=== PATIENT | female | born 1955 | race Caucasian/White ===

== ENCOUNTER 2020-07-04 09:14 | Inpatient (IN) ==
[2020-07-04 09:25] VITALS: BMI 43.9
[2020-07-04] MEDS ORDERED: DECADRON INJ IVP ONE (09:27)
[2020-07-04] MEDS ORDERED: PROVENTIL NEB TX 0.083% 2.5MG/ 3ML NEB ONE (09:27)
[2020-07-04] MEDS ORDERED: DECADRON INJ ONE (09:37)
--- NOTE | 2020-07-04 09:54 | DR.SOBA ---
HPI Time Seen Time Seen by Provider: 07/04/20 09:27 Primary Care Physician Primary Care Physician: Adolfo Fernandez Complaints Chief Complaint Doctors Comments: Pt with SOB, + for CAMARILLO no orthopnea no hemoptysis the CP is chronic after a neck surgery and is unchanged she is COVID 19+ and denies peripheral edema or hemoptysis Chief Complaint:: Patient came in for her 4th remedisivir infusion and stated complaints of shortness of breath, midsternal CP that radiates to her back, wheezing, cough, and MURPHY. Pt has home O2 that she wears PRN and her O2 sat on RA was 80%. Pt noted to have SOB, CAMARILLO, hypoxia, tachypnea, and hypotension upon arrival. Source History Provided: Patient Mode of Arrival Mode of Arrival: Ambulatory Timing Onset of Chief Complaint: 06/29/20 PMH PMH Past Medical History: Yes Past Medical History: Arthritis, COPD, Depression and Hyperthyroidism Past Surgical History: Yes Surgical History: Appendectomy and Ortho Surgery Past Surgical History Comment: Cataract surgery, Gastric bypass, Spine sx Family History History of Family Medical Conditions: Yes Family Medical History: Diabetes Mellitus, Cancer, Coronary Artery Disease and Heart Failure Social History Have you used tobacco products in the last 12 months: No Type of Tobacco Use: Cigarettes Does any household member use tobacco: Yes Alcohol Use: None Do you use any recreational Drugs:: No Lives With: Spouse Lives Where: Home Infectious screening In the last 2 months have you had wt loss of >10#?: NO Have you had fever, night sweats or hemotysis?: No Have you traveled outside the country in the last 6 months?: No Isolation: Droplet ROS Review of Systems Constitutional: Chills, Diaphoresis, Fever, Malaise, Weakness, Fatigue and Loss of Appetite Eyes: No Symptoms Reported ENTM: No Symptoms Reported Respiratoy: See HPI, Non-Productive Cough, Short of Breath and Wheezing; negative Orthopnea and Stridor Cardiovascular: See HPI Gastrointestinal/Abdominal: No Symptoms Reported Genitourinary: No Symptoms Reported Neurological: No Symptoms Reported Musculoskeletal: No Symptoms Reported Integumentary: No Symptoms Reported All Other Systems: Reviewed and Negative PE Vital Signs Vitals: Temperature 99.5 F Pulse Rate 62 Respiratory Rate 20 Blood Pressure [Right Arm] 92/52 Blood Pressure [Left Arm] 80/45 Blood Pressure 98/51 O2 Sat by Pulse Oximetry 96 General Limitations: No Limitations Head Head Exam: Normal Inspection, Atraumatic and Normocephalic Eyes Eye exam: Normal Appearance, PERRL and EOMI; negative Scleral Icterus and Conjunctival Injection ENT ENT Exam: Normal Exam, Normal Oropharynx, Normal External Ear Exam and Mucous Membranes Moist Neck Neck Exam: Normal Inspection, Full ROM and Trachea Midline Chest Chest Inspection: Normal Inspection and Symmetric Chest Wall Rise; negative Tenderness Respiratory Respiratory Exam: negative Normal Lung Sounds Bilat, Accessory Muscle Use and Chest Wall Tenderness Respiratory Exam: Bilateral: Wheezing and Bilateral: Rhonchi Cardiovascular Cardiovascular Exam: Regular Rate, Normal Rhythm and Normal Heart Sounds Abdominal Exam Abdominal Exam: Normal Inspection, Normal Bowel Sounds and Soft Extremities Extremities Exam: Normal Inspection and Full ROM; negative Tenderness and Edema Back Back Exam: Normal Inspection and Full ROM; negative Tenderness Neurologic Neurological Exam: Alert, Oriented X3 and Normal Gait Psychiatric Psychiatric Exam: Normal Affect and Normal Mood Skin Skin Exam: Warm, Dry and Intact COURSE Treatment Treatment: discussed with Dr Jaquez [id number] he accepted patient ROR Labs Reviewed Laboratory Results Reviewed?: Yes Result Diagrams: 07/04/20 09:35 07/04/20 09:35 Laboratory: WBC 11.3 X10^3/uL (3.6-10.0) H 07/04/20 09:35 RBC 4.08 X10^6/uL (3.5-5.4) 07/04/20 09:35 Hgb 11.8 g/dL (12.0-16.0) L 07/04/20 09:35 Hct 35.8 % (36.0-47.0) L 07/04/20 09:35 MCV 87.6 fL (80.0-100.0) 07/04/20 09:35 MCH 29.0 pg (27.0-34.0) 07/04/20 09:35 MCHC 33.1 g/dL (33.0-35.0) 07/04/20 09:35 RDW 13.9 % (11.6-16.5) 07/04/20 09:35 Plt Count 188 X10^3/uL (150.0-450.0) 07/04/20 09:35 MPV 8.7 fL (7.4-11.0) 07/04/20 09:35 Neut % (Auto) 88.8 % (42.0-75.0) H 07/04/20 09:35 Lymph % (Auto) 7.3 % (21.0-51.0) L 07/04/20 09:35 [place] % (Auto) 3.8 % (0.0-13.0) 07/04/20 09:35 Eos % (Auto) 0.0 % (0.9-2.9) L 07/04/20 09:35 Baso % (Auto) 0.1 % (0.2-1.0) L 07/04/20 09:35 Neut # (Auto) 10.0 x10^3/uL (2.2-4.8) H 07/04/20 09:35 Lymph # (Auto) 0.8 X10^3/uL (1.3-2.9) L 07/04/20 09:35 [place] # (Auto) 0.4 x10^3/uL (0.3-0.8) 07/04/20 09:35 Eos # (Auto) 0.0 x10^3/uL (0.0-0.2) 07/04/20 09:35 Baso # (Auto) 0.0 X10^3/uL (0.0-0.1) 07/04/20 09:35 Absolute Nucleated RBC 0.1 /100WBC 07/04/20 09:35 PT 14.3 SECONDS (11.8-14.3) 07/04/20 09:35 INR Target Range - 07/04/20 09:35 INR 1.14 (0.8-1.3) 07/04/20 09:35 APTT 42.0 SECONDS (22.9-36.5) H 07/04/20 09:35 PTT Comment - 07/04/20 09:35 D-Dimer 0.13 ug/ml (0.0-0.57) 07/04/20 09:35 Sample Site Lra 07/04/20 11:00 ABG pH 7.490 (7.35-7.45) H 07/04/20 11:00 ABG pCO2 36.0 mmHg (35.0-45.0) 07/04/20 11:00 ABG pO2 144.0 mmHg (80.0-100.0) H 07/04/20 11:00 ABG HCO3 27.4 mmol/L (22-26) H 07/04/20 11:00 ABG O2 Saturation 99.0 % (90-100) 07/04/20 11:00 ABG Base Excess 4.0 mmol/L (-2.0-2.0) H 07/04/20 11:00 Noe Test Pos 07/04/20 11:00 A-a Gradient 11.0 mmHg 07/04/20 11:00 FiO2 28.0 07/04/20 11:00 Blood Gas Comments Pt june well mt 07/04/20 11:00 Sodium 142 mmol/L (136-145) 07/04/20 09:35 Corrected Sodium TNP 07/04/20 09:35 Potassium 4.3 mmol/L (3.5-5.1) 07/04/20 09:35 Chloride 105 mmol/L (98-107) 07/04/20 09:35 Carbon Dioxide 27.3 mmol/L (21-32) 07/04/20 09:35 BUN 45 mg/dL (7-18) H 07/04/20 09:35 Creatinine 0.99 mg/dL (0.55-1.02) 07/04/20 09:35 Est GFR (MDRD) Af Amer > 60 (>60) 07/04/20 09:35 Est GFR (MDRD) Non-Af 60 (>60) 07/04/20 09:35 Glucose 79 mg/dL (65-99) 07/04/20 09:35 Calcium 8.9 mg/dL (8.5-10.1) 07/04/20 09:35 Corrected Calcium 9.7 mg/dL (8.5-10.1) 07/04/20 09:35 Magnesium 1.5 mg/dL (1.7-2.9) L 07/04/20 09:35 Total Bilirubin 0.30 mg/dL (0.2-1.0) 07/04/20 09:35 AST 40 Units/L (15-37) H 07/04/20 09:35 ALT 31 Units/L (12-78) 07/04/20 09:35 Alkaline Phosphatase 88 Units/L (46-116) 07/04/20 09:35 Creatine Kinase 259 Units/L (26-192) H 07/04/20 09:35 CK-MB (CK-2) 4.9 ng/mL (0-4.0) H* 07/04/20 09:35 CK/CKMB % Calc 1.9 % (<4) 07/04/20 09:35 Troponin I < 0.02 ng/mL (0-1.5) 07/04/20 09:35 B-Natriuretic Peptide 41.0 pg/mL (0-79) 07/04/20 09:35 Total Protein 6.5 g/dL (6.4-8.2) 07/04/20 09:35 Albumin 3.0 g/dL (3.4-5.0) L 07/04/20 09:35 Globulin 3.5 g/dL (2.5-4.5) 07/04/20 09:35 Albumin/Globulin Ratio 0.9 Ratio (1.1-2.1) L 07/04/20 09:35 XRAY XRAY Interpreted by: Radiologist X-ray Results: read indpendently by me new pneumonias EKG Rate: 64 [place]: Normal Rhythm: NSR Block: None Hypertrophy: LVH ST: Normal Opioid Opioid Risk Tool Age (Rupert box if 16-45): No History of Preadolescent Sexual Abuse: No Total: 0 Total Score Risk Category: Low Risk Copyright: Nasir BOWDEN predicting aberrant behaviors Diagnosis Discharge Problem: COVID-19, Hypoxia Pneumonia Qualifiers: Pneumonia type: due to unspecified organism
[2020-07-04 09:59] LABS: BASOPHILS % (AUTO) 0.1 % (0.2-1.0); HEMATOCRIT 35.8 % (36.0-47.0); HEMOGLOBIN 11.8 g/dL (12.0-16.0); LYMPHOCYTES # (AUTO) 0.8 X10^3/uL (1.3-2.9); LYMPHOCYTES % (AUTO) 7.3 % (21.0-51.0); MEAN CORPUSCULAR HGB CONC 33.1 g/dL (33.0-35.0); MEAN CORPUSCULAR VOLUME 87.6 fL (80.0-100.0); MEAN PLATELET VOLUME 8.7 fL (7.4-11.0); MONOCYTES # (AUTO) 0.4 x10^3/uL (0.3-0.8); MONOCYTES % (AUTO) 3.8 % (0.0-13.0); NEUTROPHILS % (AUTO) 88.8 % (42.0-75.0); PLATELET COUNT 188 X10^3/uL (150.0-450.0); RED BLOOD COUNT 4.08 X10^6/uL (3.5-5.4); RED CELL DISTRIBUTION WIDTH 13.9 % (11.6-16.5); WHITE BLOOD COUNT 11.3 X10^3/uL (3.6-10.0)
--- NOTE | 2020-07-04 10:07 | RAD ---
HISTORYSOBSTUDYCHEST, 1 [id number]/2021FINDINGSTrachea is midline. There is mild cardiomegaly. There is new round patchy alveolar and ground-glass radiopacities involving the right upper lobe and bilateral lower lobes, suspicious for viral pneumonia. No effusion or pneumothoraxIMPRESSIONNew patchy ground-glass and alveolar radiopacities as described above.Electronically signed by: Hiral Montgomery (Jul 04, 2020 10:05:55)
[2020-07-04] MEDS ORDERED: PROVENTIL NEB TX 0.083% 2.5MG/ 3ML ONE (10:09)
[2020-07-04] MEDS ORDERED: ZITHROMAX INJ 500 MG VIAL 500 MG in NS 250 ML IV 250 ML IV SCH (10:19)
[2020-07-04 10:25] LABS: BLOOD UREA NITROGEN 45 mg/dL (7-18); CALCIUM 8.9 mg/dL (8.5-10.1); CARBON DIOXIDE 27.3 mmol/L (21-32); CHLORIDE 105 mmol/L (98-107); CREATININE 0.99 mg/dL (0.55-1.02); SODIUM 142 mmol/L (136-145); TROPONIN I < 0.02 ng/mL (0-1.5); eGFR NON BLACK RACES 60 (>60)
[2020-07-04 10:44] LABS: ALANINE AMINOTRANSFERASE 31 Units/L (12-78); ALKALINE PHOSPHATASE 88 Units/L (46-116); ASPARTATE AMINO TRANSFERASE 40 Units/L (15-37); CKMB % 1.9 % (<4); COR CA(FOR HYPOALB) 9.7 mg/dL (8.5-10.1); CREATINE KINASE 259 Units/L (26-192); MAGNESIUM 1.5 mg/dL (1.7-2.9); TOTAL PROTEIN 6.5 g/dL (6.4-8.2)
[2020-07-04 10:45] LABS: CREATINE KINASE MB 4.9 ng/mL (0-4.0)
[2020-07-04] MEDS ORDERED: NS 1000 ML 1,000 ML IV SCH (11:00)
[2020-07-04] MEDS ORDERED: NS 1000 ML 1,000 ML ONE (11:01)
[2020-07-04 11:07] LABS: ABG HCO3 27.4 mmol/L (22-26)
[2020-07-04 11:09] LABS: ABG ALLEN TEST POS
[2020-07-04] MEDS ORDERED: NORCO 10/325 TAB PO PRN (13:11)
[2020-07-04] MEDS ORDERED: PHARMACY CONSULT - IVERMECTIN XX SCH (13:11)
[2020-07-04] MEDS ORDERED: LIPITOR TAB 80 MG ONE (13:27)
[2020-07-04] MEDS ORDERED: TESSALON PERLES PO ONE (13:27)
[2020-07-04] MEDS ORDERED: DECADRON TAB ONE (13:27)
[2020-07-04] MEDS ORDERED: VIBRAMYCIN PO ONE (13:27)
[2020-07-04] MEDS ORDERED: PROTONIX TAB 40 MG PO ONE (13:27)
[2020-07-04] MEDS ORDERED: LOVENOX INJ 30 MG SYR SC ONE (13:28)
[2020-07-04] MEDS ORDERED: PEPCID TAB 40 MG ONE (13:28)
[2020-07-04] MEDS ORDERED: VITAMIN D3 125 mcg (5,000 UNITS) ONE (13:28)
[2020-07-04] MEDS ORDERED: TRICOR TAB 160 MG ONE (13:28)
[2020-07-04] MEDS: TESSALON PERLES PO SCH ×2 (13:30→21:40)
[2020-07-04] MEDS: LOVENOX INJ 30 MG SYR SC SCH ×2 (13:31→22:34)
[2020-07-04] MEDS: PEPCID TAB 40 MG PO SCH ×2 (13:33→21:44)
[2020-07-04] MEDS: DECADRON TAB PO SCH (13:34)
[2020-07-04] MEDS: VIBRAMYCIN PO SCH ×2 (13:34→21:54)
[2020-07-04] MEDS: TRICOR TAB 160 MG PO SCH (13:35)
[2020-07-04] MEDS: LIPITOR TAB 80 MG PO SCH (13:35)
[2020-07-04] MEDS: PROTONIX TAB 40 MG PO SCH (13:35)
[2020-07-04] MEDS: VITAMIN D (1.25MG) PO SCH (13:36)
[2020-07-04] MEDS: VITAMIN D3 125 mcg (5,000 UNITS) PO SCH (13:36)
[2020-07-04] MEDS: VITAMIN A PO SCH (13:37)
[2020-07-04] MEDS ORDERED: THIAMINE HCL INJ ONE (13:40)
[2020-07-04] MEDS: THIAMINE HCL INJ IVP SCH ×2 (13:41→21:46)
[2020-07-04] MEDS ORDERED: IVERMECTIN PO SCH (14:00)
[2020-07-04] MEDS ORDERED: IVERMECTIN ONE (14:11)
[2020-07-04] MEDS: IVERMECTIN PO SCH ×2 (14:11→14:26)
[2020-07-04] MEDS: MUCINEX EXPECTORANT PO SCH (14:25)
[2020-07-04] MEDS: REGLAN TAB 10 MG PO SCH ×3 (14:25→21:44)
[2020-07-04] MEDS: NS 1000 ML 1,000 ML IV SCH (14:51)
[2020-07-04] MEDS ORDERED: NS 50 ML IV 50 ML IV ONE (15:01)
[2020-07-04] MEDS: ASCORBIC ACID INJ MULTI-DOSE VIAL 1,500 MG in NS 100 ML IV 100 ML IV SCH ×2 (15:16→21:41)
[2020-07-04] MEDS ORDERED: NORCO 10/325 TAB ONE (16:21)
[2020-07-04] MEDS: DUONEB 0.5 MG/3 MG (3 mL) NEB SCH ×2 (16:30→20:15)
[2020-07-04] MEDS: PULMICORT NEB TX 0.5 MG NEB SCH (20:15)
[2020-07-04] MEDS: BROVANA IN SCH (20:15)
[2020-07-04] MEDS ORDERED: PATIENT'S HOME MEDICATION (Budesonide-Formoterol 160 MCG/4.5 MCG HFA aerosol inhaler) INH SCH (21:00)
[2020-07-04] MEDS ORDERED: PATIENT'S HOME MEDICATION (Ranitidine Hcl 150 MG tablet) PO SCH (21:00)
[2020-07-04] MEDS ORDERED: MAGNESIUM SULFATE 1 GRAM/100 mL PREMIX 1 GM/100 ML BAG IV PRN (21:06)
[2020-07-04] MEDS ORDERED: POTASSIUM CHL 60 MEQ/NS 0.45% 500 ML IV PRN (21:06)
[2020-07-04] MEDS ORDERED: K-RIDER 10 MEQ/NS 100 ML 10 MEQ/100 ML BAG IV PRN (21:06)
[2020-07-04] MEDS ORDERED: MICRO K EXTEN CAP 10 MEQ PO PRN (21:06)
[2020-07-04] MEDS ORDERED: KLOR-CON PO PRN (21:06)
[2020-07-04] MEDS ORDERED: K-DUR TAB 20 MEQ PO PRN (21:06)
[2020-07-04] MEDS ORDERED: POTASSIUM CHL 40 MEQ/NS 0.45% 500 ML IV PRN (21:06)
[2020-07-04] MEDS ORDERED: POTASSIUM CHLORIDE LIQ 20 MEQ UDC PO PRN (21:06)
[2020-07-04] MEDS: LYRICA CAP 50 mg PO SCH (21:40)
[2020-07-04] MEDS: EFFEXOR TAB 75 MG (BID DOSING) PO SCH (21:41)
[2020-07-04] MEDS: MELATONIN PO SCH (21:43)
[2020-07-04] MEDS: REMDESIVIR 100 MG in NS 250 ML IV 250 ML IV SCH (21:45)
[2020-07-04] MEDS: ZINC SULFATE PO SCH (21:47)
[2020-07-05] MEDS: ASCORBIC ACID INJ MULTI-DOSE VIAL 1,500 MG in NS 100 ML IV 100 ML IV SCH ×4 (02:53→20:12)
[2020-07-05] MEDS: TESSALON PERLES PO SCH ×3 (05:40→23:25)
[2020-07-05] MEDS: REGLAN TAB 10 MG PO SCH ×4 (05:41→20:16)
[2020-07-05 05:59] LABS: ABG BASE EXCESS 5.3 mmol/L (-2.0-2.0)
[2020-07-05 06:01] LABS: ABG ALLEN TEST POS; ABG HCO3 30.5 mmol/L (22-26)
--- NOTE | 2020-07-05 06:13 | RAD ---
HISTORYShortness of breathSTUDYChest AP [id number] June 2020FINDINGSThe heart is within normal limits in size. The becca are normal. The lungs are hypoinflated. Previously noted bilateral infiltrates have improved bilaterally with some residual interstitial infiltrates remaining. No pleural effusions are identified. Bony thorax is unremarkable.IMPRESSIONImproving bilateral infiltratesElectronically signed by: NOAH DAVIS (Jul 05, 2020 06:12:19)
[2020-07-05 06:46] LABS: BASOPHILS % (AUTO) 0.1 % (0.2-1.0); HEMATOCRIT 28.7 % (36.0-47.0); HEMOGLOBIN 9.5 g/dL (12.0-16.0); LYMPHOCYTES # (AUTO) 0.5 X10^3/uL (1.3-2.9); LYMPHOCYTES % (AUTO) 7.1 % (21.0-51.0); MEAN CORPUSCULAR HEMOGLOBIN 28.8 pg (27.0-34.0); MEAN CORPUSCULAR HGB CONC 32.9 g/dL (33.0-35.0); MEAN CORPUSCULAR VOLUME 87.5 fL (80.0-100.0); MEAN PLATELET VOLUME 9.1 fL (7.4-11.0); MONOCYTES # (AUTO) 0.3 x10^3/uL (0.3-0.8); MONOCYTES % (AUTO) 4.1 % (0.0-13.0); NEUTROPHILS # (AUTO) 6.7 x10^3/uL (2.2-4.8); NEUTROPHILS % (AUTO) 88.7 % (42.0-75.0); PLATELET COUNT 180 X10^3/uL (150.0-450.0); RED BLOOD COUNT 3.29 X10^6/uL (3.5-5.4); RED CELL DISTRIBUTION WIDTH 13.9 % (11.6-16.5); WHITE BLOOD COUNT 7.5 X10^3/uL (3.6-10.0)
[2020-07-05 06:52] LABS: ALANINE AMINOTRANSFERASE 22 Units/L (12-78); ALBUMIN 2.7 g/dL (3.4-5.0); ALKALINE PHOSPHATASE 74 Units/L (46-116); ASPARTATE AMINO TRANSFERASE 27 Units/L (15-37); BLOOD UREA NITROGEN 43 mg/dL (7-18); CALCIUM 8.8 mg/dL (8.5-10.1); CHLORIDE 109 mmol/L (98-107); COR CA(FOR HYPOALB) 9.8 mg/dL (8.5-10.1); COR NA(FOR HYPERGLY) 145 mmol/L (136-145); CREATININE 0.75 mg/dL (0.55-1.02); MAGNESIUM 2.1 mg/dL (1.7-2.9); SODIUM 145 mmol/L (136-145); TOTAL PROTEIN 5.9 g/dL (6.4-8.2); eGFR NON BLACK RACES > 60 (>60)
[2020-07-05] MEDS ORDERED: NS 100 ML IV 100 ML IV ONE (08:34)
--- NOTE | 2020-07-05 08:43 | DR.H&P ---
H&P - History & Physical for Day of: H&P Date: 07/04/20 - Chief Complaint Chief Complaint: COUGH, SOB, FEVER, WHEEZING, HYPOTENSION, CHEST PAIN, COVID POSITIVE - History of Present Illness History of Present Illness: IS A 64 YEAR OLD PATIENT OF OURS. SHE PRESENTED TO THE ER WITH COMPLAINTS OF INCREASED SHORTNESS OF BREATH. SHE REPORTS THAT SHORTNESS OF BREATH IS WORSE UPON EXERTION. SHE DENIES HEMOPTYSIS OR EDEMA. SHE IS POSITIVE FOR COVID-19. PRIOR TO ARRIVAL AT ER, PATIENT WAS AT THE HOSPTIAL RECEIVING HER FOURTH REMDESIVIR INFUSION. WHILE RECEIVING INFUSION, PATIENT BEGAN TO COMPLAIN OF MIDSTERNAL CHEST PAIN WITH RADIATION TO THE BACK, WHEEZING, INCREASED COUGH, AND HEADACHE. SHE HAS HOME OXYGEN THAT SHE WEARS NEEDED. SHE WAS NOT WEARING IT WHILE RECEIVING INFUSION. HE OXYGEN SATURATIONS WERE NOTED TO BE 80% ON ROOM AIR. EXAMINATION ALSO REVEALED WHEEZING, TACHYPNEA, AND HYPOTENSION. CHEST PAIN IS DESCRIBED SHARP AND WAS RATED 5/10. HER PMH INCLUDES ARTHRITIS, COPD, DEPRESSION, AND HYPERTHYROIDISM. ON ARRIVAL TO THE ER, VITALS WERE 99.5-68-21-80%RA-89/47. LABS WERE OBTAINED. ABNORMAL LAB VALUES INCLUDE THE FOLLOWING: WBC 11.3, HGB 11.8, HCT 35.8, BUN 45, MAGNESIUM 1.5, FERRITIN 855, AST 40, CREATINE KINASE 253, CK-MB 4.9, ALBUMIN 3.0. AN ABG WAS OBTAINED AND REVEALED: PH 7.490, PC02 36, P02 144, HC03 27.4, 02 SAT 99, BASE EXCESS 4.0, A-A GRADIENT 11, FI02 28. BLOOD CULTURES WERE SET UP. A CHEST XRAY W OBTAINED AND REVEALED: Trachea is midline. There is mild cardiomegaly. There is new round patchy alveolar and ground-glass radiopacities involving the right upper lobe and bilateral lower lobes, suspicious for viral pneumonia. No effusion or pneumothorax. AN EKG WAS OBTAINED AND REVEALED: SINUS RHYTHM WITH HR 64. IN THE ER, HE WAS GIVEN DECADRON 8MG IV X 1, PROVENTIL NEB X 1, AND NORCO 10/325MG PO X 1 DOSE. SHE DENIED IMPROVEMENT IN SYMPTOMS. SHE WAS ADMITTED TO THE HOSPITAL FOR FURTHER EVALUATION AND TREATMENT OF PNEUMONIA DUE TO COVID-19 AND HYPOXIA. SHE WAS STARTED ON NS AT [facility], REMDESIVIR 100MG IV DAILY, ASCORBIC ACID 1500MG IV Q6H, ATORVASTATIN 80MG PO DAILY, TESSALON PERLES 200MG PO TID, BROVANA NEBS BID, ALBUTEROL NEBS Q6H, PULMICORT NEBS BID, LOVENOX 30MG SC BID, LEVAQUIN 500MG IV DAILY, FORTAZ 1G IV Q8H, TRICOR 160MG PO DAILY, MUCINEX 600MG PO Q12H, NORCO 10/325MG PO Q4H PRN, IVERMECTIN 24MG PO Q72 HR, SYNTHROID 150MG PO DAILY, MELATONIN 10MG PO HS, REGLAN 10MG PO ACHS, SINGULAIR 10MG PO DAILY, PROTONIX 40MG PO DAILY, LYRICA 50MG PO BID, THIAMINE 200MG IV BID, EFFEXOR 150MG PO DAILY AND EFFEXOR 75MG PO HS, ZINC 220MG PO BID, AND THE POTASSIUM AND MAGNESIUM PROTOCOLS. WE WILL OBTAIN AN ECHOCARDIOGRAM AND A CHEST CTA. OTHERWISE, WE PLAN TO FOLLOW UP WITH AM LABS AND CONTINUE TO MONITOR. TIME SPENT ON CLINICAL ASSESSMENT REVIEWING LABS AND IMAGING, DECISION MAKING, AND DOCUMENTATION GREATER THAN 75 MINUTES. - Past Medical History Past Medical History: Depression, Hyperthyroidism, COPD, Arthritis Additional Medical History: Bronchtis, Hiatal hernia, constipation, Fibromyalgia, Back Pain, Degenerative Disc Disease - Past Surgical History Surgical History: Appendectomy, Ortho Surgery Additional Surgical History: gastric bypass, back surgery - Family History Family Medical History: Diabetes Mellitus, Cancer, Coronary Artery Disease, Heart Failure - Social History Does patient currently use any type of tobacco product: No Have you used tobacco products in the last 12 months: No Type of Tobacco Use: None Does any household member use tobacco: No Alcohol Use: None Drug Use: None - Medications Home Medications: tetanus immune globulin Allergy (Verified 07/01/20 14:34) CONTINUE taking the following medications biotin 1,000 mcg PO DAILY 07/04/20 [History] cyanocobalamin (vitamin B-12) 100 mcg IM WEEKLY 07/04/20 [History] docusate sodium [Colace] 100 mg PO BID 07/04/20 [History] famotidine 20 mg PO BID 07/04/20 [History] ferrous sulfate 65 mg PO DAILY 07/04/20 [History] [id number] [Trelegy Ellipta] 1 inh INHALATION DAILY 07/04/20 [History] loratadine 10 mg PO HS 07/04/20 [History] meloxicam 15 mg PO DAILY 07/04/20 [History] - Review of Systems Constitutional: Fever, Weakness Eyes: No Symptoms Reported ENT: No Symptoms Reported Respiratory: Cough, Shortness of Breath, SOB with Excertion, Wheezing Cardiovascular: No Symptoms Reported Gastrointestinal: No Symptoms Reported Genitourinary: No Symptoms Reported Musculoskeletal: No Symptoms Reported Skin: No Symptoms Reported Neurological: Weakness - Physical Exam Vital Signs: Temperature 97.9 F Pulse Rate [Right Brachial] 54 Pulse Rate 65 Respiratory Rate 20 Blood Pressure [Right Arm] 118/57 Blood Pressure [Left Arm] 80/45 Blood Pressure 101/50 O2 Sat by Pulse Oximetry 93 Oriented: Normal Eyes: Normal Ear: Normal Nose: Normal Throat: Normal Respiratory: Wheezes Throughout Cardiovascular: Normal : Normal Auscultation: Bowel Sounds: Normal Palpation: Normal Tenderness: Normal Skin: Normal Musculoskeletal: Normal Psychiatric: Normal Mood Description: Calm Affect: Normal Speech Pattern: Clear - Assessment/Plan (1) Pneumonia due to COVID-19 virus Status: Acute Plan: ADMIT, IV FLUIDS, LEVAQUIN IV, FORTAZ IV, REMDESIVIR IV, NEB TX, RESUME HOME MEDS, OBTAIN ECHO AND CHEST CTA (2) Hypoxia Status: Acute (3) COPD (chronic obstructive pulmonary disease) Qualifiers: COPD type: unspecified COPD Qualified Code(s): J44.9 - Chronic obstructive pulmonary disease, unspecified Status: Chronic (4) Hypothyroidism Qualifiers: Hypothyroidism type: acquired Qualified Code(s): E03.9 - Hypothyroidism, unspecified Status: Chronic - Review H&P Reviewed: Yes Patient was examined?: Yes - Allergies Allergies/Adverse Reactions: Allergies Allergy/AdvReac Type Severity Reaction Status Date / Time tetanus immune globulin Allergy Verified 07/01/20 14:34
[2020-07-05] MEDS: DECADRON TAB PO SCH (08:48)
[2020-07-05] MEDS: EFFEXOR TAB 75 MG (BID DOSING) PO SCH ×2 (08:50→20:13)
[2020-07-05] MEDS: ZINC SULFATE PO SCH ×2 (08:51→20:15)
[2020-07-05] MEDS: LOVENOX INJ 30 MG SYR SC SCH ×2 (08:52→21:23)
[2020-07-05] MEDS: PEPCID TAB 40 MG PO SCH ×2 (08:54→20:17)
[2020-07-05] MEDS: VITAMIN D (1.25MG) PO SCH (08:54)
[2020-07-05] MEDS: TRICOR TAB 160 MG PO SCH (08:54)
[2020-07-05] MEDS: SYNTHROID 150 mcg TAB PO SCH (08:55)
[2020-07-05] MEDS: PROTONIX TAB 40 MG PO SCH (08:55)
[2020-07-05] MEDS: SINGULAIR TAB 10 MG PO SCH (08:55)
[2020-07-05] MEDS: THIAMINE HCL INJ IVP SCH ×2 (08:56→20:16)
[2020-07-05] MEDS: LIPITOR TAB 80 MG PO SCH (08:56)
[2020-07-05] MEDS: VIBRAMYCIN PO SCH (08:56)
[2020-07-05] MEDS: LYRICA CAP 50 mg PO SCH ×2 (08:56→20:14)
[2020-07-05] MEDS: VITAMIN A PO SCH (08:58)
[2020-07-05] MEDS ORDERED: ZOFRAN INJ 4 MG VIAL IVP PRN (09:03)
[2020-07-05] MEDS: NS 1000 ML 1,000 ML IV SCH (09:12)
[2020-07-05] MEDS: MUCINEX EXPECTORANT PO SCH ×2 (09:12→14:55)
[2020-07-05] MEDS: PULMICORT NEB TX 0.5 MG NEB SCH ×2 (09:18→21:10)
[2020-07-05] MEDS: BROVANA IN SCH ×2 (09:25→21:05)
--- NOTE | 2020-07-05 10:51 | CT ---
HISTORYSOB / COVID hypertension. Asthma. COPD.STUDYCTA CHESTCOMPARISONChest radiograph 07/05/2020TECHNIQUEMultiple CT axial images of the chest were obtained with IV contrast. Coronal and sagittal images were reconstructed. 3D reconstructions using axial MIPS imaging was performed and reviewed. Dose reduction techniques included Automated Exposure Control (AEC) and adjustment of mA and kV.Stenoses are measured using NASCET criteria.FINDINGSPulmonary arteries are identified to subsegmental branches. No pulmonary emboli.Cardiomegaly is present. Atherosclerotic calcifications are present in the coronary arteries. The pulmonary artery and aorta have a normal caliber. No mediastinal mass or significant lymphadenopathy.No thyroid abnormality.No axillary mass or significant axillary lymphadenopathy is identified.Limited views of the upper abdomen show no significant abnormality. Surgical clips are present at the esophagogastric junction.Patchy bilateral focal areas of ground-glass opacity are compatible with bronchopneumonia. The appearance is typical for COVID-19. No pleural effusion or pneumothorax.Fixation hardware is present in the lower thoracic spine. Compression fracture is present in the lower thoracic spine, probably old.IMPRESSION1. No pulmonary emboli2. Bronchopneumonia typical for COVID-193. Cardiomegaly with CADElectronically signed by: Mick Fernandez (Jul 05, 2020 10:49:21)
[2020-07-05] MEDS: LEVAQUIN PREMIX IV 500 MG 500 MG/100 ML BAG IV SCH (11:14)
[2020-07-05] MEDS: FORTAZ or TAZICEF VIAL INJ 1 G in NS 100 ML IV + SPIKE MINIBAG* 100 ML IV SCH ×3 (11:14→23:24)
[2020-07-05] MEDS: SOLU-Medrol 125 MG VIAL IVP SCH ×3 (11:15→21:25)
[2020-07-05] MEDS: ACCUNEB 1.25 MG NEBULE NEB SCH ×3 (11:39→17:07)
[2020-07-05] MEDS: NORCO 10/325 TAB PO PRN (18:36)
[2020-07-05] MEDS: REMDESIVIR 100 MG in NS 250 ML IV 250 ML IV SCH (20:11)
[2020-07-05] MEDS: MELATONIN PO SCH (20:17)
[2020-07-05] MEDS: DUONEB 0.5 MG/3 MG (3 mL) NEB SCH (23:23)
[2020-07-06] MEDS: ACCUNEB 1.25 MG NEBULE NEB SCH ×4 (00:17→17:30)
[2020-07-06] MEDS: MUCINEX EXPECTORANT PO SCH ×2 (00:21→14:50)
[2020-07-06] MEDS: NORCO 10/325 TAB PO PRN ×2 (00:38→09:00)
[2020-07-06] MEDS: SOLU-Medrol 125 MG VIAL IVP SCH ×4 (02:44→22:00)
[2020-07-06] MEDS: ASCORBIC ACID INJ MULTI-DOSE VIAL 1,500 MG in NS 100 ML IV 100 ML IV SCH ×4 (02:44→22:00)
[2020-07-06 05:15] LABS: ABG ALLEN TEST POS; ABG BASE EXCESS 1.1 mmol/L (-2.0-2.0); ABG HCO3 25.1 mmol/L (22-26)
[2020-07-06] MEDS: FORTAZ or TAZICEF VIAL INJ 1 G in NS 100 ML IV + SPIKE MINIBAG* 100 ML IV SCH ×4 (05:32→14:40)
[2020-07-06] MEDS: REGLAN TAB 10 MG PO SCH ×4 (05:33→22:00)
[2020-07-06 06:53] LABS: BASOPHILS % (AUTO) 0 % (0.2-1.0); HEMATOCRIT 24.7 % (36.0-47.0); HEMOGLOBIN 8.3 g/dL (12.0-16.0); LYMPHOCYTES # (AUTO) 0.4 X10^3/uL (1.3-2.9); MEAN CORPUSCULAR HEMOGLOBIN 29.2 pg (27.0-34.0); MEAN CORPUSCULAR HGB CONC 33.4 g/dL (33.0-35.0); MEAN CORPUSCULAR VOLUME 87.5 fL (80.0-100.0); MONOCYTES # (AUTO) 0.2 x10^3/uL (0.3-0.8); MONOCYTES % (AUTO) 2.7 % (0.0-13.0); NEUTROPHILS # (AUTO) 5.5 x10^3/uL (2.2-4.8); NEUTROPHILS % (AUTO) 90.3 % (42.0-75.0); PLATELET COUNT 185 X10^3/uL (150.0-450.0); RED BLOOD COUNT 2.83 X10^6/uL (3.5-5.4); RED CELL DISTRIBUTION WIDTH 13.9 % (11.6-16.5); WHITE BLOOD COUNT 6.1 X10^3/uL (3.6-10.0)
--- NOTE | 2020-07-06 06:55 | RAD ---
HISTORYcovidSTUDYAP [id number]/2021FINDINGSContinued normal heart size and contour. Mild interstitial infiltrat es in the left lung are stable. There is slight interval increase in airspace process in periphery of right lung. No discrete mass, pneumothorax or pleural fluid component demonstrated.IMPRESSIONPersist ent bilateral pneumonia with slight interval increase in right-sided infiltrates since 1 day prior.El ectronically signed by: ANNABELLA FORBES (Jul 06, 2020 06:53:47)
[2020-07-06 07:03] LABS: ALANINE AMINOTRANSFERASE 25 Units/L (12-78); ALBUMIN 2.9 g/dL (3.4-5.0); ALKALINE PHOSPHATASE 73 Units/L (46-116); ASPARTATE AMINO TRANSFERASE 28 Units/L (15-37); BLOOD UREA NITROGEN 36 mg/dL (7-18); CALCIUM 8.8 mg/dL (8.5-10.1); CARBON DIOXIDE 28.9 mmol/L (21-32); CHLORIDE 107 mmol/L (98-107); COR CA(FOR HYPOALB) 9.7 mg/dL (8.5-10.1); COR NA(FOR HYPERGLY) 146 mmol/L (136-145); CREATININE 0.96 mg/dL (0.55-1.02); SODIUM 145 mmol/L (136-145); TOTAL PROTEIN 6.1 g/dL (6.4-8.2); eGFR NON BLACK RACES > 60 (>60)
[2020-07-06 09:20] LABS: BAND NEUTROPHILS % 2 % (0-10); PLATELET MORPHOLOGY COMMENT NORMAL (NORMAL)
[2020-07-06] MEDS: BROVANA IN SCH ×2 (09:45→21:10)
[2020-07-06] MEDS: PULMICORT NEB TX 0.5 MG NEB SCH ×2 (09:45→21:10)
[2020-07-06] MEDS: TRICOR TAB 160 MG PO SCH (09:47)
[2020-07-06] MEDS: EFFEXOR TAB 75 MG (BID DOSING) PO SCH ×2 (09:47→22:00)
[2020-07-06] MEDS: VITAMIN D3 125 mcg (5,000 UNITS) PO SCH (09:48)
[2020-07-06] MEDS: SINGULAIR TAB 10 MG PO SCH (09:48)
[2020-07-06] MEDS: ZINC SULFATE PO SCH ×2 (09:48→22:00)
[2020-07-06] MEDS: PEPCID TAB 40 MG PO SCH ×2 (09:49→22:00)
[2020-07-06] MEDS: THIAMINE HCL INJ IVP SCH ×2 (09:49→22:00)
[2020-07-06] MEDS: LEVAQUIN PREMIX IV 500 MG 500 MG/100 ML BAG IV SCH (09:51)
[2020-07-06] MEDS: PROTONIX TAB 40 MG PO SCH (09:51)
[2020-07-06] MEDS: LYRICA CAP 50 mg PO SCH ×2 (09:51→22:00)
[2020-07-06] MEDS: SYNTHROID 150 mcg TAB PO SCH (09:52)
[2020-07-06] MEDS: LOVENOX INJ 30 MG SYR SC SCH (09:54)
[2020-07-06] MEDS: LIPITOR TAB 80 MG PO SCH (10:00)
[2020-07-06] MEDS ORDERED: TYLENOL 325 MG TAB PO PRN (11:02)
[2020-07-06] MEDS ORDERED: BENADRYL INJ 50 MG VIAL IVP PRN (11:02)
--- NOTE | 2020-07-06 12:29 | PCM.PROG ---
Progress Note - Progress Note for Day of Date of Exam: 07/06/20 - Subjective Subjective: IS BEING TREATED FOR PNEUMONIA DUE TO COVID-19 AND HYPOXIA. TODAY, SHE CONTINUES WITH COMPLAINTS OF COUGH, SHORTNESS OF BREATH, AND WEAKNESS. SHE REPORTS SLIGHT IMPROVEMENT IN SYMPTOMS SINCE YESTERDAY. SHE REMAINS ON OXYGEN VIA NASAL CANNULA AT 4 LPM. HER SATURATIONS HAVE BEEN 93-97% THIS MORNING AND THROUGHOUT THE NIGHT. ON EXAMINATION, HEART IS REGULAR IN RATE AND RHYTHM. BILATERAL LUNGS ARE NOTED WITH RALES THROUGHOUT. ABDOMEN IS ROUND, SOFT, AND NON-TENDER WITH NORMAL BOWEL SOUNDS NOTED IN ALL QUADRANTS. HER VITALS THIS MORNING ARE: 97.6-61-21-96%-122/59. LABS WERE OBTAINED. ABNORMAL LAB VALUES INCLUDE THE FOLLOWING: RBC 2.83, HGB 8.3, HCT 24.7, BUN 36, GLUCOSE 123, ALEX RITIN 677, CRP 53.50, BNP 82.9, TOTAL PROTEIN 6.1, ALBUMIN 2.9. BLOOD CULTURES ARE PENDING. ABG WAS OBTAINED AND REVEALED: PH 7.440, PC02 37, P02 62, HC03 25.1, 02 SAT 92, BASE EXCESS 1.1, A-A GRADIENT, FI02 32. A CHEST XRAY WAS OBTAINED AND REVEALED: Persistent bilateral pneumonia with slight interval increase in right-sided infiltrates since 1 day prior. SHE [facility], REMDESIVIR 100MG IV DAILY, ASCORBIC ACID 1500MG IV Q6H, ATORVASTATIN 80MG PO DAILY, TESSALON PERLES 200MG PO TID, BROVANA NEBS BID, ALBUTEROL NEBS Q6H, PULMICORT NEBS BID, LOVENOX 30MG SC BID, LEVAQUIN 500MG IV DAILY, FORTAZ 1G IV Q8H, TRICOR 160MG PO DAILY, MUCINEX 600MG PO Q12H, NORCO 10/325MG PO Q4H PRN, IVERMECTIN 24MG PO Q72 HR, SYNTHROID 150MG PO DAILY, MELATONIN 10MG PO HS, REGLAN 10MG PO ACHS, SINGULAIR 10MG PO DAILY, PROTONIX 40MG PO DAILY, LYRICA 50MG PO BID, THIAMINE 200MG IV BID, EFFEXOR 150MG PO DAILY AND EFFEXOR 75MG PO HS, ZINC 220MG PO BID, AND THE POTASSIUM AND MAGNESIUM PROTOCOLS. TODAY, WE WILL TRANSFUSE 2 UNITS OF PRBC DUE TO DROP IN HEMOGLOBIN. WE WILL CONTINUE TO DECREASE OXYGEN. OTHERWISE, WE WILL CONTINUE WITH CURRENT PLAN OF CARE TODAY. WE PLAN TO FOLLOW UP WITH AM LABS, CHEST XRAY, ABG, AND CONTINUE TO MONITOR. TIME SPENT ON CLINICAL ASSESSMENT, REVIEWING LABS AND IMAGING, DECISION MAKING, AND DOCUMENTATION GREATER THAN 75 MINUTES. - Past Medical Family Social History Past Med/Fam/Surg Hx: No changes since H&P Allergies: Allergies tetanus immune globulin Allergy (Verified 07/01/20 14:34) - Review of Systems ROS: No change since H&P - Vital Signs and I&O's Vital Signs: Temperature 97.6 F Pulse Rate [Right Brachial] 61 Pulse Rate 66 Respiratory Rate 21 Blood Pressure [Right Arm] 133/60 Blood Pressure [Left Arm] 122/59 Blood Pressure 101/50 O2 Sat by Pulse Oximetry 96 Intake and Output: Intake & Output 07/04/20 07/05/20 07/06/20 07/07/20 11:59 11:59 11:59 11:59 Intake Total 1390 / 1390 990 / 990 Balance 1390 / 1390 990 / 990 - Physical Exam Oriented: Normal Eyes: Normal Ear: Normal Nose: Normal Throat: Normal Respiratory: Generalized, Diminished Cardiovascular: Normal : Normal Auscultation: Bowel Sounds: Normal Palpation: Normal Tenderness: Normal Skin: Normal Musculoskeletal: Normal Psychiatric: Normal Mood Description: Calm Affect: Normal Speech Pattern: Clear - Laboratory and Diagnostics Result Diagrams: 07/06/20 05:50 07/06/20 05:50 Labs: Laboratory WBC 6.1 X10^3/uL (3.6-10.0) 07/06/20 05:50 RBC 2.83 X10^6/uL (3.5-5.4) L 07/06/20 05:50 Hgb 8.3 g/dL (12.0-16.0) L 07/06/20 05:50 Hct 24.7 % (36.0-47.0) L 07/06/20 05:50 MCV 87.5 fL (80.0-100.0) 07/06/20 05:50 MCH 29.2 pg (27.0-34.0) 07/06/20 05:50 MCHC 33.4 g/dL (33.0-35.0) 07/06/20 05:50 RDW 13.9 % (11.6-16.5) 07/06/20 05:50 Plt Count 185 X10^3/uL (150.0-450.0) 07/06/20 05:50 Plt Count Comment Adequate (ADEQUATE) 07/06/20 05:50 MPV 9.0 fL (7.4-11.0) 07/06/20 05:50 Neut % (Auto) 90.3 % (42.0-75.0) H 07/06/20 05:50 Lymph % (Auto) 7.0 % (21.0-51.0) L 07/06/20 05:50 Real % (Auto) 2.7 % (0.0-13.0) 07/06/20 05:50 Eos % (Auto) 0.0 % (0.9-2.9) L 07/06/20 05:50 Baso % (Auto) 0 % (0.2-1.0) L 07/06/20 05:50 Neut # (Auto) 5.5 x10^3/uL (2.2-4.8) H 07/06/20 05:50 Lymph # (Auto) 0.4 X10^3/uL (1.3-2.9) L 07/06/20 05:50 Real # (Auto) 0.2 x10^3/uL (0.3-0.8) L 07/06/20 05:50 Eos # (Auto) 0.0 x10^3/uL (0.0-0.2) 07/06/20 05:50 Baso # (Auto) 0.0 X10^3/uL (0.0-0.1) 07/06/20 05:50 Absolute Nucleated RBC 0.1 /100WBC 07/06/20 05:50 Total Counted 100 07/06/20 05:50 Neutrophils % (Manual) 90 % (39-76) H 07/06/20 05:50 Band Neutrophils % 2 % (0-10) 07/06/20 05:50 Lymphocytes % (Manual) 8 % (13-43) L 07/06/20 05:50 Monocytes % (Manual) 0 % (4-9) L 07/06/20 05:50 Plt Morphology Comment Normal (NORMAL) 07/06/20 05:50 RBC Morphology Normal (NORMAL) 07/06/20 05:50 PT 14.3 SECONDS (11.8-14.3) 07/04/20 09:35 INR Target Range - 07/04/20 09:35 INR 1.14 (0.8-1.3) 07/04/20 09:35 APTT 42.0 SECONDS (22.9-36.5) H 07/04/20 09:35 PTT Comment - 07/04/20 09:35 D-Dimer 0.16 ug/ml (0.0-0.57) 07/06/20 05:50 Sample Site Lr 07/06/20 05:10 ABG pH 7.440 (7.35-7.45) 07/06/20 05:10 ABG pCO2 37.0 mmHg (35.0-45.0) 07/06/20 05:10 ABG pO2 62.0 mmHg (80.0-100.0) L 07/06/20 05:10 ABG HCO3 25.1 mmol/L (22-26) 07/06/20 05:10 ABG O2 Saturation 92.0 % (90-100) 07/06/20 05:10 ABG Base Excess 1.1 mmol/L (-2.0-2.0) 07/06/20 05:10 Noe Test Pos 07/06/20 05:10 A-a Gradient 120.0 mmHg 07/06/20 05:10 FiO2 32.0 07/06/20 05:10 Blood Gas Comments Erick well ae 07/06/20 05:10 Sodium 145 mmol/L (136-145) 07/06/20 05:50 Corrected Sodium 146 mmol/L (136-145) H 07/06/20 05:50 Potassium 3.9 mmol/L (3.5-5.1) 07/06/20 05:50 Chloride 107 mmol/L (98-107) 07/06/20 05:50 Carbon Dioxide 28.9 mmol/L (21-32) 07/06/20 05:50 BUN 36 mg/dL (7-18) H 07/06/20 05:50 Creatinine 0.96 mg/dL (0.55-1.02) 07/06/20 05:50 Est GFR (MDRD) Af Amer > 60 (>60) 07/06/20 05:50 Est GFR (MDRD) Non-Af > 60 (>60) 07/06/20 05:50 Glucose 123 mg/dL (65-99) H 07/06/20 05:50 Calcium 8.8 mg/dL (8.5-10.1) 07/06/20 05:50 Corrected Calcium 9.7 mg/dL (8.5-10.1) 07/06/20 05:50 Magnesium 2.1 mg/dL (1.7-2.9) 07/05/20 05:57 Ferritin 677 ng/mL (8-252) H 07/06/20 05:50 Total Bilirubin 0.20 mg/dL (0.2-1.0) 07/06/20 05:50 AST 28 Units/L (15-37) 07/06/20 05:50 ALT 25 Units/L (12-78) 07/06/20 05:50 Alkaline Phosphatase 73 Units/L (46-116) 07/06/20 05:50 Creatine Kinase 259 Units/L (26-192) H 07/04/20 09:35 CK-MB (CK-2) 4.9 ng/mL (0-4.0) H* 07/04/20 09:35 CK/CKMB % Calc 1.9 % (<4) 07/04/20 09:35 Troponin I < 0.02 ng/mL (0-1.5) 07/04/20 09:35 C-Reactive Protein 53.50 mg/L (0-3.0) H 07/06/20 05:50 B-Natriuretic Peptide 82.9 pg/mL (0-79) H 07/06/20 05:50 Total Protein 6.1 g/dL (6.4-8.2) L 07/06/20 05:50 Albumin 2.9 g/dL (3.4-5.0) L 07/06/20 05:50 Globulin 3.2 g/dL (2.5-4.5) 07/06/20 05:50 Albumin/Globulin Ratio 0.9 Ratio (1.1-2.1) L 07/06/20 05:50 - Plan (1) Pneumonia due to COVID-19 virus Status: Acute Plan: IV FLUIDS, LEVAQUIN IV, FORTAZ IV, REMDESIVIR IV, NEB TX, RESUME HOME MEDS, OBTAIN ECHO AND CHEST CTA (2) Hypoxia Status: Acute (3) Anemia Status: Acute Qualifiers: Anemia type: iron deficiency Iron deficiency anemia type: unspecified iron deficiency Qualified Code(s): D50.9 - Iron deficiency anemia, unspecified Plan: TRANSFUSE 2 UNITS PRBC, CONTINUE TO MONITOR (4) COPD (chronic obstructive pulmonary disease) Status: Chronic Qualifiers: COPD type: unspecified COPD Qualified Code(s): J44.9 - Chronic obstructive pulmonary disease, unspecified (5) Hypothyroidism Status: Chronic Qualifiers: Hypothyroidism type: acquired Qualified Code(s): E03.9 - Hypothyroidism, unspecified
[2020-07-06] MEDS: COLACE CAP 100 MG PO SCH ×2 (14:40→22:00)
[2020-07-06] MEDS: TESSALON PERLES PO SCH ×2 (14:43→22:00)
[2020-07-06] MEDS: NS 1000 ML 1,000 ML IV SCH (14:50)
[2020-07-06] MEDS: NS 500 ML IV 500 ML IV ONE ×2 (14:51→18:20)
[2020-07-06] MEDS ORDERED: NS 500 ML IV 500 ML IV ONE (15:41)
[2020-07-06] MEDS: MELATONIN PO SCH (22:00)
[2020-07-07] MEDS: LOVENOX INJ 30 MG SYR SC SCH ×2 (00:16→10:27)
[2020-07-07] MEDS: ACCUNEB 1.25 MG NEBULE NEB SCH ×3 (01:34→12:11)
[2020-07-07] MEDS: SOLU-Medrol 125 MG VIAL IVP SCH ×2 (03:00→11:06)
[2020-07-07] MEDS: MUCINEX EXPECTORANT PO SCH ×2 (03:00→13:40)
[2020-07-07] MEDS: ASCORBIC ACID INJ MULTI-DOSE VIAL 1,500 MG in NS 100 ML IV 100 ML IV SCH ×2 (03:00→11:06)
[2020-07-07] MEDS: TESSALON PERLES PO SCH (06:20)
[2020-07-07 06:22] LABS: ABG BASE EXCESS 6.6 mmol/L (-2.0-2.0)
[2020-07-07 06:23] LABS: ABG HCO3 31.3 mmol/L (22-26)
[2020-07-07 06:24] LABS: ABG ALLEN TEST POS
[2020-07-07 06:29] LABS: BASOPHILS % (AUTO) 0.1 % (0.2-1.0); HEMATOCRIT 26.5 % (36.0-47.0); LYMPHOCYTES # (AUTO) 0.4 X10^3/uL (1.3-2.9); LYMPHOCYTES % (AUTO) 5.1 % (21.0-51.0); MEAN CORPUSCULAR HEMOGLOBIN 29.7 pg (27.0-34.0); MEAN CORPUSCULAR HGB CONC 34.1 g/dL (33.0-35.0); MEAN CORPUSCULAR VOLUME 86.9 fL (80.0-100.0); MEAN PLATELET VOLUME 8.6 fL (7.4-11.0); MONOCYTES # (AUTO) 0.3 x10^3/uL (0.3-0.8); MONOCYTES % (AUTO) 3.6 % (0.0-13.0); NEUTROPHILS # (AUTO) 7.3 x10^3/uL (2.2-4.8); NEUTROPHILS % (AUTO) 91.2 % (42.0-75.0); PLATELET COUNT 202 X10^3/uL (150.0-450.0); RED BLOOD COUNT 3.04 X10^6/uL (3.5-5.4)
[2020-07-07] MEDS: REGLAN TAB 10 MG PO SCH ×2 (06:30→11:13)
[2020-07-07] MEDS: FORTAZ or TAZICEF VIAL INJ 1 G in NS 100 ML IV + SPIKE MINIBAG* 100 ML IV SCH (06:30)
--- NOTE | 2020-07-07 06:35 | RAD ---
HISTORYcovid pneumoniaSTUDYPortable AP [id number] cardiac size and configuration. Bilateral airspace disease again noted, unchanged in the right lung and slightly increased in the left upper lobe. There is no evidence for complicating extrapulmonary air collection or pleural effusion.IMPRESSIONPersistent bilateral pneumonia with slight interval progression in the left upper lobe since 1 day earlier.Electronically signed by: ANNABELLA FORBES (Jul 07, 2020 06:32:49)
[2020-07-07 06:44] LABS: ALANINE AMINOTRANSFERASE 25 Units/L (12-78); ALBUMIN 2.7 g/dL (3.4-5.0); ALKALINE PHOSPHATASE 66 Units/L (46-116); ASPARTATE AMINO TRANSFERASE 26 Units/L (15-37); BLOOD UREA NITROGEN 29 mg/dL (7-18); CALCIUM 8.7 mg/dL (8.5-10.1); CHLORIDE 109 mmol/L (98-107); COR CA(FOR HYPOALB) 9.7 mg/dL (8.5-10.1); COR NA(FOR HYPERGLY) 147 mmol/L (136-145); SODIUM 146 mmol/L (136-145); TOTAL PROTEIN 5.6 g/dL (6.4-8.2); eGFR NON BLACK RACES > 60 (>60)
[2020-07-07] MEDS ORDERED: NS 100 ML IV 100 ML IV ONE (07:07)
[2020-07-07 08:00] LABS: PLATELET MORPHOLOGY COMMENT NORMAL (NORMAL)
[2020-07-07] MEDS: PULMICORT NEB TX 0.5 MG NEB SCH (09:00)
[2020-07-07] MEDS ORDERED: HEMOCYTE-PLUS PO SCH (09:00)
[2020-07-07] MEDS: BROVANA IN SCH (09:08)
[2020-07-07] MEDS: EFFEXOR TAB 75 MG (BID DOSING) PO SCH (10:21)
[2020-07-07] MEDS: SYNTHROID 150 mcg TAB PO SCH (10:22)
[2020-07-07] MEDS: NORCO 10/325 TAB PO PRN (10:22)
[2020-07-07] MEDS: PEPCID TAB 40 MG PO SCH (10:22)
[2020-07-07] MEDS: ZINC SULFATE PO SCH (10:23)
[2020-07-07] MEDS: SINGULAIR TAB 10 MG PO SCH (10:23)
[2020-07-07] MEDS: COLACE CAP 100 MG PO SCH (10:23)
[2020-07-07] MEDS: LIPITOR TAB 80 MG PO SCH (10:23)
[2020-07-07] MEDS: LYRICA CAP 50 mg PO SCH (10:24)
[2020-07-07] MEDS: VITAMIN D3 125 mcg (5,000 UNITS) PO SCH (10:24)
[2020-07-07] MEDS: THIAMINE HCL INJ IVP SCH (10:26)
[2020-07-07] MEDS: TRICOR TAB 160 MG PO SCH (10:27)
[2020-07-07] MEDS: PROTONIX TAB 40 MG PO SCH (10:27)
[2020-07-07] MEDS: LEVAQUIN PREMIX IV 500 MG 500 MG/100 ML BAG IV SCH (11:08)
[2020-07-07 13:38] VITALS: BP 139/66
--- NOTE | 2020-10-02 12:28 | PCM.PROG ---
Progress Note - Progress Note for Day of Date of Exam: 07/05/20 - Subjective Subjective: IS BEING TREATED FOR PNEUMONIA DUE TO COVID-19 AND HYPOXIA. TODAY, SHE CONTINUES WITH COMPLAINTS OF COUGH, SHORTNESS OF BREATH, AND WEAKNESS. SHE REPORTS SLIGHT IMPROVEMENT IN SYMPTOMS SINCE YESTERDAY. SHE REMAINS ON OXYGEN VIA NASAL CANNULA AT 3-4 LPM. HER SATURATIONS HAVE BEEN 90-94% THIS MORNING AND THROUGHOUT THE NIGHT. ON EXAMINATION, HEART IS REGULAR IN RATE AND RHYTHM. BILATERAL LUNGS ARE NOTED WITH RALES THROUGHOUT. ABDOMEN IS ROUND, SOFT, AND NON-TENDER WITH NORMAL BOWEL SOUNDS NOTED IN ALL QUADRANTS. HER VITALS THIS MORNING ARE: 97.9-54-20-93%-118/57. LABS WERE OBTAINED. ABNORMAL LAB VALUES INCLUDE THE FOLLOWING: RBC 3.29, HGB 9.5, HCT 28.7, CHLORIDE 109, BUN 43, GLUCOSE 111, FERRITIN 654, CRP 144.80, TOTAL PROTEIN 5.9, ALBUMIN 2.7. BLOOD CULTURES ARE PENDING. ABG WAS OBTAINED AND REVEALED: PH 7.430, PC02 46, P02 68.0, HC03 30.5, 02 SAT 94, BASE EXCESS 5.3, A-A GRADIENT 74, FI02 28.0. A CHEST XRAY WAS OBTAINED AND REVEALED: Improving bilateral infiltrates. SHE IS CURRENTLY RECEIVING NS AT [facility], REMDESIVIR 100MG IV DAILY, ASCORBIC ACID 1500MG IV Q6H, ATORVASTATIN 80MG PO DAILY, TESSALON PERLES 200MG PO TID, BROVANA NEBS BID, ALBUTEROL NEBS Q6H, PULMICORT NEBS BID, LOVENOX 30MG SC BID, LEVAQUIN 500MG IV DAILY, FORTAZ 1G IV Q8H, TRICOR 160MG PO DAILY, MUCINEX 600MG PO Q12H, NORCO 10/325MG PO Q4H PRN, IVERMECTIN 24MG PO Q72 HR, SYNTHROID 150MG PO DAILY, M ELATONIN 10MG PO HS, REGLAN 10MG PO ACHS, SINGULAIR 10MG PO DAILY, PROTONIX 40MG PO DAILY, LYRICA 50MG PO BID, THIAMINE 200MG IV BID, EFFEXOR 150MG PO DAILY AND EFFEXOR 75MG PO HS, ZINC 220MG PO BID, AND THE POTASSIUM AND MAGNESIUM PROTOCOLS. WE WILL CONTINUE TO DECREASE OXYGEN. OTHERWISE, WE WILL CONTINUE WITH CURRENT PLAN OF CARE TODAY. WE PLAN TO FOLLOW UP WITH AM LABS, CHEST XRAY, ABG, AND CONTINUE TO MONITOR. TIME SPENT ON CLINICAL ASSESSMENT, REVIEWING LABS AND IMAGING, DECISION MAKING, AND DOCUMENTATION GREATER THAN 75 MINUTES. - Past Medical Family Social History Past Med/Fam/Surg Hx: No changes since H&P Allergies: Allergies tetanus immune globulin Allergy (Verified 07/01/20 14:34) - Review of Systems ROS: No change since H&P - Vital Signs and I&O's Vital Signs: Temperature 98.3 F Pulse Rate [Left Brachial] 63 Pulse Rate [Right Brachial] 50 Pulse Rate 70 Respiratory Rate 20 Blood Pressure [Right Arm] 129/60 Blood Pressure [Left Arm] 139/66 Blood Pressure 101/50 O2 Sat by Pulse Oximetry 95 - Physical Exam Oriented: Normal Eyes: Normal Ear: Normal Nose: Normal Throat: Normal Respiratory: Generalized, Diminished Cardiovascular: Normal : Normal Auscultation: Bowel Sounds: Normal Tenderness: Normal Skin: Normal Musculoskeletal: Normal Psychiatric: Normal Mood Description: Calm Affect: Normal Speech Pattern: Clear - Laboratory and Diagnostics Result Diagrams: 07/07/20 05:49 07/07/20 05:49 Labs: 07/04/20 09:51 Blood Blood Culture - Final 07/04/20 09:35 Blood Blood Culture - Final Laboratory WBC 8.0 X10^3/uL (3.6-10.0) 07/07/20 05:49 RBC 3.04 X10^6/uL (3.5-5.4) L 07/07/20 05:49 Hgb 9.0 g/dL (12.0-16.0) L 07/07/20 05:49 Hct 26.5 % (36.0-47.0) L 07/07/20 05:49 MCV 86.9 fL (80.0-100.0) 07/07/20 05:49 MCH 29.7 pg (27.0-34.0) 07/07/20 05:49 MCHC 34.1 g/dL (33.0-35.0) 07/07/20 05:49 RDW 14.0 % (11.6-16.5) 07/07/20 05:49 Plt Count 202 X10^3/uL (150.0-450.0) 07/07/20 05:49 Plt Count Comment Adequate (ADEQUATE) 07/07/20 05:49 MPV 8.6 fL (7.4-11.0) 07/07/20 05:49 Neut % (Auto) 91.2 % (42.0-75.0) H 07/07/20 05:49 Lymph % (Auto) 5.1 % (21.0-51.0) L 07/07/20 05:49 [place] % (Auto) 3.6 % (0.0-13.0) 07/07/20 05:49 Eos % (Auto) 0.0 % (0.9-2.9) L 07/07/20 05:49 Baso % (Auto) 0.1 % (0.2-1.0) L 07/07/20 05:49 Neut # (Auto) 7.3 x10^3/uL (2.2-4.8) H 07/07/20 05:49 Lymph # (Auto) 0.4 X10^3/uL (1.3-2.9) L 07/07/20 05:49 [place] # (Auto) 0.3 x10^3/uL (0.3-0.8) 07/07/20 05:49 Eos # (Auto) 0.0 x10^3/uL (0.0-0.2) 07/07/20 05:49 Baso # (Auto) 0.0 X10^3/uL (0.0-0.1) 07/07/20 05:49 Absolute Nucleated RBC 0.2 /100WBC 07/07/20 05:49 Total Counted 100 07/07/20 05:49 Neutrophils % (Manual) 86 % (39-76) H 07/07/20 05:49 Band Neutrophils % 2 % (0-10) 07/06/20 05:50 Lymphocytes % (Manual) 9 % (13-43) L 07/07/20 05:49 Monocytes % (Manual) 5 % (4-9) 07/07/20 05:49 Plt Morphology Comment Normal (NORMAL) 07/07/20 05:49 RBC Morphology Normal (NORMAL) 07/07/20 05:49 PT 14.3 SECONDS (11.8-14.3) 07/04/20 09:35 INR Target Range - 07/04/20 09:35 INR 1.14 (0.8-1.3) 07/04/20 09:35 APTT 42.0 SECONDS (22.9-36.5) H 07/04/20 09:35 PTT Comment - 07/04/20 09:35 D-Dimer 0.17 ug/ml (0.0-0.57) 07/07/20 05:49 Sample Site Lr 07/07/20 06:15 ABG pH 7.460 (7.35-7.45) H 07/07/20 06:15 ABG pCO2 44.0 mmHg (35.0-45.0) 07/07/20 06:15 ABG pO2 66.0 mmHg (80.0-100.0) L 07/07/20 06:15 ABG HCO3 31.3 mmol/L (22-26) H* 07/07/20 06:15 ABG O2 Saturation 94.0 % (90-100) 07/07/20 06:15 ABG Base Excess 6.6 mmol/L (-2.0-2.0) H 07/07/20 06:15 Noe Test Pos 07/07/20 06:15 A-a Gradient 136.0 mmHg 07/07/20 06:15 FiO2 36 07/07/20 06:15 Blood Gas Comments Erick well ae 07/07/20 06:15 Sodium 146 mmol/L (136-145) H 07/07/20 05:49 Corrected Sodium 147 mmol/L (136-145) H 07/07/20 05:49 Potassium 4.0 mmol/L (3.5-5.1) 07/07/20 05:49 Chloride 109 mmol/L (98-107) H 07/07/20 05:49 Carbon Dioxide 28.0 mmol/L (21-32) 07/07/20 05:49 BUN 29 mg/dL (7-18) H 07/07/20 05:49 Creatinine 0.80 mg/dL (0.55-1.02) 07/07/20 05:49 Est GFR (MDRD) Af Amer > 60 (>60) 07/07/20 05:49 Est GFR (MDRD) Non-Af > 60 (>60) 07/07/20 05:49 Glucose 145 mg/dL (65-99) H 07/07/20 05:49 Calcium 8.7 mg/dL (8.5-10.1) 07/07/20 05:49 Corrected Calcium 9.7 mg/dL (8.5-10.1) 07/07/20 05:49 Magnesium 2.1 mg/dL (1.7-2.9) 07/05/20 05:57 Ferritin 612 ng/mL (8-252) H 07/07/20 05:49 Total Bilirubin 0.30 mg/dL (0.2-1.0) 07/07/20 05:49 AST 26 Units/L (15-37) 07/07/20 05:49 ALT 25 Units/L (12-78) 07/07/20 05:49 Alkaline Phosphatase 66 Units/L (46-116) 07/07/20 05:49 Creatine Kinase 259 Units/L (26-192) H 07/04/20 09:35 CK-MB (CK-2) 4.9 ng/mL (0-4.0) H* 07/04/20 09:35 CK/CKMB % Calc 1.9 % (<4) 07/04/20 09:35 Troponin I < 0.02 ng/mL (0-1.5) 07/04/20 09:35 C-Reactive Protein 19.70 mg/L (0-3.0) H 07/07/20 05:49 B-Natriuretic Peptide 242 pg/mL (0-79) H 07/07/20 05:49 Total Protein 5.6 g/dL (6.4-8.2) L 07/07/20 05:49 Albumin 2.7 g/dL (3.4-5.0) L 07/07/20 05:49 Globulin 2.9 g/dL (2.5-4.5) 07/07/20 05:49 Albumin/Globulin Ratio 0.9 Ratio (1.1-2.1) L 07/07/20 05:49 Blood Type O POSITIVE 07/06/20 11:27 Antibody Screen Negative 07/06/20 11:27 Crossmatch See Detail 07/06/20 11:27 - Plan (1) Pneumonia due to COVID-19 virus Status: Acute Plan: IV FLUIDS, LEVAQUIN IV, FORTAZ IV, REMDESIVIR IV, NEB TX, RESUME HOME MEDS, OBTAIN ECHO AND CHEST CTA (2) Hypoxia Status: Acute (3) Anemia Status: Acute Qualifiers: Anemia type: iron deficiency Iron deficiency anemia type: unspecified iron deficiency Qualified Code(s): D50.9 - Iron deficiency anemia, unspecified Plan: TRANSFUSE 2 UNITS PRBC, CONTINUE TO MONITOR (4) COPD (chronic obstructive pulmonary disease) Status: Chronic Qualifiers: COPD type: unspecified COPD Qualified Code(s): J44.9 - Chronic obstructive pulmonary disease, unspecified (5) Hypothyroidism Status: Chronic Qualifiers: Hypothyroidism type: acquired Qualified Code(s): E03.9 - Hypothyroidism, unspecified
== END 2020-07-07 14:00 | disposition home or self-care (01) | DRG 177 ==
LOC: ER 09:14 → OBS 12:17 → MED/SURG 18:07
PROVIDERS: ADMIT Internal Medicine; ATTEND Internal Medicine
DX: R06.02 Shortness of breath; R07.89 Other chest pain; E86.9 Volume depletion, unspecified; D50.8 Other iron deficiency anemias; Z99.81 Dependence on supplemental oxygen; R94.31 Abnormal electrocardiogram [ECG] [EKG]; R79.89 Other specified abnormal findings of blood chemistry; R51.9 Headache, unspecified; J12.82 Pneumonia due to coronavirus disease 2019; U07.1 COVID-19; R79.82 Elevated C-reactive protein (CRP); E03.8 Other specified hypothyroidism; J44.9 Chronic obstructive pulmonary disease, unspecified; I95.89 Other hypotension